=== PATIENT | male | born 1960 | race Caucasian/White ===

== ENCOUNTER 2024-08-04 19:05 | Emergency (ER) | payer BC, OTHER ==
[~2024-08-04] VITALS: Ht 190.5 cm; Wt 86.2 kg
[2024-08-04 19:31] VITALS: TEMP 98.2
[2024-08-04] MEDS ORDERED: AMOX-430 PO (19:50)
[2024-08-04] MEDS ORDERED: TDAP [DIPH/PERTUSSIS/TET] 0.5 ML VIAL IM ONE (19:56)
[2024-08-04] MEDS: TDAP [DIPH/PERTUSSIS/TET] 0.5 ML VIAL IM ONE (20:00)
[2024-08-04 20:43] VITALS: BP 120/77; O2SAT 98
== END 2024-08-04 20:05 | disposition home or self-care (01) ==
LOC: ER 19:28
DX: S40.812A Abrasion of left upper arm, initial encounter (principal); Z88.5 Allergy status to narcotic agent; Y04.1XXA Assault by human bite, initial encounter; Y93.89 Activity, other specified; Y92.89 Other specified places as the place of occurrence of the external cause; Y99.8 Other external cause status
CPT/HCPCS: 99283; 90471; 90715; A6403